=== PATIENT | female | born 1945 | race Caucasian/White ===

== ENCOUNTER 2021-10-20 15:32 | Day surgery (SDCO) | payer MEDICARE ==
[~2021-10-20] VITALS: Ht 157.5 cm; Wt 61.4 kg
[2021-10-20 17:46] LABS: BILIRUBIN NEGATIVE (NEGATIVE); BLOOD NEGATIVE Ery/uL (NEGATIVE); CLARITY CLEAR (CLEAR); COLOR YELLOW (YELLOW); GLUCOSE (U) NORMAL (NORMAL); LEUKOCYTES NEGATIVE Leu/uL (NEGATIVE); NITRITE NEGATIVE (NEGATIVE); PROTEIN NEGATIVE (NEGATIVE); SPECIFIC GRAVITY 1.015 (1.001-1.030); UROBILINOGEN 0.2 mg/dL (0.2-1.0)
[2021-10-20 18:37] LABS: BASOPHIL 0.7 % (0-2); EOSINOPHIL 1.7 % (0-7); HGB 11.3 g/dl (12.5-16.0); LYMPHOCYTE 17.9 % (15-48); MCH 33.6 pg (25.0-31.0); MCHC 33.2 g/dL (32.0-36.0); MCV 101.2 fL (78.0-100.0); MONOCYTE 12.6 % (0-12); MPV 9.1 fL (6.0-9.5); NRBC 0; PLT 383 K/uL (150-400); RBC 3.36 M/uL (4.20-5.40); RDW 13.8 % (11.5-14.0); WBC 7.5 K/uL (4.0-10.5)
[2021-10-20 18:55] LABS: BUN/CREAT RATIO (CALC) 15.8 RATIO; CREATININE 1.2 mg/dL (0.51-0.95); POTASSIUM 4.2 mmol/L (3.5-5.1)
[2021-10-20] MEDS ORDERED: FAMOTIDINE40 MG PO (22:52)
[2021-10-20] MEDS ORDERED: ZOLOFT50 MG PO (22:52)
[2021-10-20] MEDS ORDERED: ACETAMINOPHEN500 M1 PO (22:53)
[2021-10-20] MEDS ORDERED: TRAMADOL HCL50 MG PO (22:54)
[2021-10-20] MEDS ORDERED: WELLBUTRIN SR150 MG PO (23:10)
[2021-10-20] MEDS ORDERED: WELLBUTRIN SR150 M1 PO (23:11)
[2021-10-20] MEDS ORDERED: NORCO 5-325 TA1 EACH PO (23:12)
[2021-10-20] MEDS ORDERED: ZOCOR40 MG PO (23:12)
[2021-10-21 06:36] LABS: HCT 29.4 % (37.0-47.0); HGB 9.8 g/dl (12.5-16.0); MCH 33.6 pg (25.0-31.0); MCHC 33.3 g/dL (32.0-36.0); MCV 100.7 fL (78.0-100.0); MPV 9.4 fL (6.0-9.5); RBC 2.92 M/uL (4.20-5.40); RDW 13.6 % (11.5-14.0); RETICULOCYTE COUNT 1.4 % (1.0-2.0); WBC 5.5 K/uL (4.0-10.5)
[2021-10-21 06:55] LABS: INR 1.1 (0.9-1.2); PROTHROMBIN TIME 13.9 SECONDS (11.9-13.9)
[2021-10-21 06:58] LABS: IRON % SATURATION 41.9 %SAT (20-50)
[2021-10-21 08:09] LABS: ALBUMIN 2.8 g/dL (3.4-5.0); BILIRUBIN - DIRECT 0.1 mg/dL (0.00-0.20); BILIRUBIN - TOTAL 0.4 mg/dL (0.2-1.0); FT4 (FREE T4) 0.7 ng/dL (0.76-1.46); GLOBULIN (CALCULATION) 2.5 g/dL; TOTAL PROTEIN 5.3 g/dL (6.4-8.2)
[2021-10-21 10:40] LABS: CREATININE 1.17 mg/dL (0.51-0.95)
[2021-10-21 10:41] LABS: POTASSIUM 4.1 mmol/L (3.5-5.1)
--- NOTE | 2021-10-21 12:17 | NUR ---
SPOKE TO BOTH THE PAIENT AND DTR UCHE MAGANA AND THEY WOULD LIKE TO GO BACK TO [facility] AND HAVE HOME HEALTH. I CALLED AND SPOKE TO KIMBERLEE AND SHE IS TALKING TO [employer] TO SEE IF THEY CAN TAKE HER BACK
[2021-10-21] MEDS ORDERED: PERCOCET 5-3251 EACH PO (13:11)
--- NOTE | 2021-10-21 13:12 | NUR ---
PT ALREADY HAS AN EMAIL; PT SENT OVER A ROLLING WALKER REQUEST; [facility] WILL TAKE BACK
--- NOTE | 2021-10-21 13:13 | NUR ---
SET UP WITH [facility]; [facility] TO BE DELIVERED TO [facility]
== END 2021-10-21 14:30 | disposition home health service (06) ==
LOC: FER 15:32 → FMS 19:11
PROVIDERS: Emergency Medicine; Nurse Practitioner Acute Care; ADMIT Internal Medicine
DX: S22.059A Unspecified fracture of T5-T6 vertebra, initial encounter for closed fracture (principal); R60.0 Localized edema; E43 Unspecified severe protein-calorie malnutrition; D53.9 Nutritional anemia, unspecified; N39.0 Urinary tract infection, site not specified; E78.5 Hyperlipidemia, unspecified; K21.9 Gastro-esophageal reflux disease without esophagitis; W19.XXXA Unspecified fall, initial encounter; Z85.118 Personal history of other malignant neoplasm of bronchus and lung; Z85.828 Personal history of other malignant neoplasm of skin; Z91.81 History of falling; Z87.891 Personal history of nicotine dependence
CPT/HCPCS: 36415; 70450; 71045; 72128; 72131; 73552; 73590; 73600; 80048; 80076; 81003; 82607; 82728; 83540; 83550; 83880; 84439; 84443; 84484; 85025; 85610; 87088; 93005; 93970; 94010; 94760; 97162; 97167; 97530; 97530-GP; 97535; G0378; J1650; J7030